=== PATIENT | female | born 1935 | race Caucasian/White ===

== ENCOUNTER 2020-08-01 17:27 | Emergency (ER) | payer OTHER ==
[~2020-08-01] VITALS: Ht 165.1 cm; Wt 78.9 kg
[~2020-08-01 17:27] MED LIST: AMLODIPINE BESY10 MG PO; HYDRALAZINE 10M10 MG PO; HYDRALAZINE 2525 MG PO; LEVOTHYROXINE0.05 MG PO; LISINOPRIL20 MG PO; NORCO 5-325 TA1 EACH PO; PLAVIX 75 MG TA75 M1 PO; PRINIVIL20 MG PO
[2020-08-01 19:03] VITALS: BP 168/75
== END 2020-08-01 19:06 | disposition home or self-care (01) ==
LOC: ER 17:27
DX: S62.323A Displaced fracture of shaft of third metacarpal bone, left hand, initial encounter for closed fracture (principal); S62.325A Displaced fracture of shaft of fourth metacarpal bone, left hand, initial encounter for closed fracture; I10 Essential (primary) hypertension; Z79.01 Long term (current) use of anticoagulants; Z79.899 Other long term (current) drug therapy; Z88.5 Allergy status to narcotic agent; W18.39XA Other fall on same level, initial encounter; Y93.89 Activity, other specified; Y92.89 Other specified places as the place of occurrence of the external cause; Y99.8 Other external cause status